=== PATIENT | female | born 1995 | race Caucasian/White ===

== ENCOUNTER 2018-03-25 11:54 | Emergency (ER) | payer MEDICAID ==
[~2018-03-25] VITALS: Ht 152.4 cm; Wt 63.0 kg
[~2018-03-25 11:54] MED LIST: ALBU8HFA IH; DIPH-423 PO; IBUP-1984 PO; NO HOME MEDS; ONDA4TAB6 PO; POTA20TA19 PO; PRED20TA PO; ZOF4T PO; [UNRECOGNIZED DRUG - CODE] PO
[2018-03-25 13:07] LABS: URINE HCG POSITIVE (NEG)
[2018-03-25 13:13] LABS: CLARITY,URINE SLIGHTLY CLOUDY (Clear); COLOR,URINE YELLOW (Yellow); GLUCOSE, URINE NEGATIVE (Neg); KETONES,URINE TRACE mg/dl (Neg); LEUKOCYTE ESTERASE ,URINE NEGATIVE (Neg); NITRITES, URINE NEGATIVE (Neg); OCCULT BLOOD,URINE MODERATE (Neg); PROTEIN,URINE NEGATIVE (Neg); UROBILINOGEN,URINE 0.2 E.U/dL (0.2-1.0)
[2018-03-25 13:15] LABS: UA COLLECTION TYPE CLN CATCH MIDSTREAM
[2018-03-25 13:25] LABS: BACTERIA,URINE 1+ /HPF (Neg); RBC,URINE NONE SEEN /HPF (0-2); SQUAMOUS EPITHELIAL CELL,UR MANY /LPF (FEW); WBC,URINE 0-4 /HPF (0-4)
[2018-03-25 14:27] VITALS: BP 121/78
[2018-03-25 14:40] LABS: BASOPHILS % (AUTO) 0.3 % (0-1); EOSINOPHILS # (AUTO) 0.2 X10'3 (0-0.9); EOSINOPHILS % (AUTO) 2.2 % (0-6); HEMATOCRIT 39.2 % (35.0-45.0); HEMOGLOBIN 13.6 g/dl (12.0-16.0); LYMPHOCYTES # (AUTO) 1.4 X10'3 (1.1-4.8); LYMPHOCYTES % (AUTO) 16.3 % (21-51); MEAN CORPUSCULAR HEMOGLOBIN 33.2 PG (27.0-31.0); MEAN CORPUSCULAR HGB CONC 34.8 % (33.0-36.5); MEAN CORPUSCULAR VOLUME 95.5 FL (78-98); MEAN PLATELET VOLUME 7.5 FL (7.4-10.4); MONOCYTES # (AUTO) 0.3 X10'3 (0-0.9); MONOCYTES % (AUTO) 3.5 % (2-12); NEUTROPHILS # (AUTO) 6.5 X10'3 (1.8-7.7); NEUTROPHILS % (AUTO) 77.7 % (42-75); PLATELET COUNT 385 X10'3 (140-440); RED BLOOD COUNT 4.11 X10'6 (4.20-5.60); RED CELL DISTRIBUTION WIDTH 12.6 % (11.5-14.5); WHITE BLOOD COUNT 8.4 X10'3 (4.5-11.0)
[2018-03-25 14:50] LABS: ALANINE AMINOTRANSFERASE 32 U/L (12-78); ALBUMIN 3.9 G/DL (3.4-5.0); ALKALINE PHOSPHATASE 60 IU/L (46-116); ANION GAP 11 (8-16); ASPARTATE AMINO TRANSFERASE 21 U/L (10-37); BILIRUBIN,TOTAL 0.3 MG/DL (0.1-1.0); BLOOD UREA NITROGEN 8 MG/DL (7-18); BUN/CREATININE RATIO 12.7 (6.6-38.0); CALCIUM 9.1 MG/DL (8.5-10.1); CHLORIDE 103 MMOL/L (99-107); CREATININE 0.63 MG/DL (0.40-0.90); POTASSIUM 3.7 MMOL/L (3.5-5.1); SODIUM 138 MMOL/L (135-145); TOTAL CARBON DIOXIDE 24.3 MMOL/L (24-32); eGFR > 90 ML/MIN
[2018-03-25 15:13] LABS: LIPASE 92 U/L (73-393)
[2018-03-25 15:21] LABS: BETA HCG,QUANTITATIVE 9796 mIU/ml; GLUCOSE 89 MG/DL (70-104)
== END 2018-03-25 15:42 | disposition home or self-care (01) ==
LOC: ER 11:55
DX: O26.891 Other specified pregnancy related conditions, first trimester (principal); R10.32 Left lower quadrant pain; J45.909 Unspecified asthma, uncomplicated; Z88.8 Allergy status to other drugs, medicaments and biological substances; Z79.899 Other long term (current) drug therapy; Z3A.01 Less than 8 weeks gestation of pregnancy
CPT/HCPCS: 36415; 76801; 80053; 81001; 81025; 83690; 84702; 85025; 86900; 86901; 99285

== ENCOUNTER 2018-08-23 16:13 | Emergency (ER) | payer MEDICAID, OTHER ==
[~2018-08-23] VITALS: Ht 152.4 cm; Wt 62.5 kg
[2018-08-23 16:18] VITALS: BP 128/80
[2018-08-23] MEDS ORDERED: ipratropium/albuterol 3ml nebule NEB ONE (16:35)
[2018-08-23] MEDS ORDERED: METH4TAB81 PO (16:47)
[2018-08-23] MEDS ORDERED: GUAI473S11 PO (16:47)
[2018-08-23] MEDS ORDERED: ALBU8.5H8 IH (16:47)
== END 2018-08-23 17:46 | disposition home or self-care (01) ==
LOC: ER 16:13
DX: R05 Cough (principal); J45.909 Unspecified asthma, uncomplicated; Z88.8 Allergy status to other drugs, medicaments and biological substances; Z79.899 Other long term (current) drug therapy
CPT/HCPCS: 99283

== ENCOUNTER 2019-10-04 08:17 | Emergency (ER) | payer MEDICAID ==
[~2019-10-04] VITALS: Ht 152.4 cm; Wt 63.6 kg
[~2019-10-04 08:17] MED LIST changes: +ALBU8.5H8 IH; +METH4TAB81 PO
[2019-10-04 08:21] VITALS: BP 135/97
[2019-10-04] MEDS ORDERED: CIPR7.5D LEFT EAR (08:42)
== END 2019-10-04 09:01 | disposition home or self-care (01) ==
LOC: ER 08:17
DX: H60.92 Unspecified otitis externa, left ear (principal); J06.9 Acute upper respiratory infection, unspecified; J45.909 Unspecified asthma, uncomplicated; F17.210 Nicotine dependence, cigarettes, uncomplicated; F10.99 Alcohol use, unspecified with unspecified alcohol-induced disorder; Z86.69 Personal history of other diseases of the nervous system and sense organs; Z88.8 Allergy status to other drugs, medicaments and biological substances; Z79.899 Other long term (current) drug therapy; Y90.9 Presence of alcohol in blood, level not specified
CPT/HCPCS: 99283; 99406

== ENCOUNTER 2020-09-06 11:44 | Emergency (ER) | payer MEDICAID, OTHER ==
[~2020-09-06] VITALS: Ht 152.4 cm; Wt 59.0 kg
[~2020-09-06 11:44] MED LIST changes: +CIPR7.5D LEFT EAR
[2020-09-06 11:52] VITALS: BP 121/72
--- NOTE | 2020-09-06 12:05 | NUR ---
[facility] for [facility], they were all out to lunch
[2020-09-06 16:07] LABS: CLARITY,URINE SLIGHTLY CLOUDY (Clear); COLOR,URINE YELLOW (Yellow); GLUCOSE, URINE NEGATIVE (Neg); KETONES,URINE TRACE mg/dl (Neg); LEUKOCYTE ESTERASE ,URINE NEGATIVE (Neg); NITRITES, URINE NEGATIVE (Neg); OCCULT BLOOD,URINE NEGATIVE (Neg); PH,URINE 6.5 (4.8-8.0); PROTEIN,URINE NEGATIVE (Neg); UROBILINOGEN,URINE 0.2 E.U/dL (0.2-1.0)
[2020-09-06 16:09] LABS: BASOPHILS % (AUTO) 0.6 % (0-1); EOSINOPHILS # (AUTO) 0.3 X10'3 (0-0.9); EOSINOPHILS % (AUTO) 5.2 % (0-6); HEMATOCRIT 40.7 % (35.0-45.0); HEMOGLOBIN 13.9 g/dl (12.0-16.0); LYMPHOCYTES # (AUTO) 1.2 X10'3 (1.1-4.8); LYMPHOCYTES % (AUTO) 17.4 % (21-51); MEAN CORPUSCULAR HEMOGLOBIN 32.2 PG (27.0-31.0); MEAN CORPUSCULAR HGB CONC 34.3 g/dL (33.0-36.5); MEAN CORPUSCULAR VOLUME 94.1 FL (78-98); MEAN PLATELET VOLUME 7.3 FL (7.4-10.4); MONOCYTES # (AUTO) 0.5 X10'3 (0-0.9); MONOCYTES % (AUTO) 7.1 % (2-12); NEUTROPHILS # (AUTO) 4.6 X10'3 (1.8-7.7); NEUTROPHILS % (AUTO) 69.7 % (42-75); PLATELET COUNT 413 X10'3 (140-440); RED BLOOD COUNT 4.33 X10'6 (4.20-5.60); RED CELL DISTRIBUTION WIDTH 12.3 % (11.5-14.5); WHITE BLOOD COUNT 6.6 X10'3 (4.5-11.0)
[2020-09-06 16:10] LABS: UA COLLECTION TYPE VOIDED
[2020-09-06 16:11] LABS: URINE HCG NEGATIVE (NEG)
[2020-09-06 16:17] LABS: BACTERIA,URINE 1+ /HPF (Neg); RBC,URINE 0-2 /HPF (0-2); SQUAMOUS EPITHELIAL CELL,UR FEW /LPF (FEW); URINE AMPHETAMINE SCREEN NEGATIVE (Neg); URINE BARBITUATE SCREEN NEGATIVE (Neg); URINE BENZODIAZEPINES SCREEN NEGATIVE (Neg); URINE CANNABINOID SCREEN NEGATIVE (Neg); URINE COCAINE SCREEN NEGATIVE (Neg); URINE METHADONE SCREEN NEGATIVE (Neg); URINE OPIATE SCREEN NEGATIVE (Neg); URINE PHENCYCLIDINE SCREEN NEGATIVE (Neg); WBC,URINE 0-4 /HPF (0-4)
[2020-09-06 16:18] LABS: ALANINE AMINOTRANSFERASE 35 U/L (12-78); ALBUMIN 4.1 G/DL (3.4-5.0); ALKALINE PHOSPHATASE 75 IU/L (46-116); ANION GAP 11 (8-16); ASPARTATE AMINO TRANSFERASE 22 U/L (10-37); BILIRUBIN,TOTAL 0.2 MG/DL (0.1-1.0); BLOOD UREA NITROGEN 8 MG/DL (7-18); BUN/CREATININE RATIO 14.5 (6.6-38.0); CALCIUM 9.2 MG/DL (8.5-10.1); CHLORIDE 103 MMOL/L (99-107); CREATININE 0.55 MG/DL (0.40-0.90); SODIUM 140 MMOL/L (135-145); TOTAL CARBON DIOXIDE 26.1 MMOL/L (24-32); TOTAL PROTEIN 8.2 G/DL (6.4-8.2); eGFR > 90 ML/MIN
[2020-09-06 16:19] LABS: GLUCOSE 87 MG/DL (70-104)
--- NOTE | 2020-09-06 17:19 | NUR ---
[facility] was called and a message was left for geri
--- NOTE | 2020-09-06 17:46 | NUR ---
sart exam performed, pt was offered shower but refused, pt ws also offered sti prophylaxis but refused them. pt did state that she will follow up with [facility] for further evaluation and or come back to the ER if she has concerns of infection. pt was accompained by [facility] advocate and by sister.
== END 2020-09-06 18:56 | disposition home or self-care (01) ==
LOC: ER 11:44 → EEVIPCON 11:44 → ER 18:56
DX: Z04.41 Encounter for examination and observation following alleged adult rape (principal); R51.9 Headache, unspecified; R11.10 Vomiting, unspecified; J45.909 Unspecified asthma, uncomplicated; F17.200 Nicotine dependence, unspecified, uncomplicated; Z98.890 Other specified postprocedural states; Z72.89 Other problems related to lifestyle; Z88.6 Allergy status to analgesic agent; Z88.8 Allergy status to other drugs, medicaments and biological substances; Z79.2 Long term (current) use of antibiotics; Z79.899 Other long term (current) drug therapy
CPT/HCPCS: 36415; 80053; 80305; 81001; 81025; 85025; 87491; 99283; 99284

== ENCOUNTER 2021-12-11 15:39 | Emergency (ER) | payer MEDICAID, OTHER ==
[~2021-12-11] VITALS: Ht 152.4 cm; Wt 67.3 kg
[~2021-12-11 15:39] MED LIST changes: +ALBU8.5H17 IH; -ALBU8.5H8 IH; +POTA-207 PO; -POTA20TA19 PO
[2021-12-11] MEDS ORDERED: ALBU6.7H9 INH (18:01)
[2021-12-11] MEDS ORDERED: LORA10TA65 PO (18:01)
[2021-12-11 18:12] VITALS: BP 129/99
== END 2021-12-11 18:15 | disposition home or self-care (01) ==
LOC: ER 15:40
DX: J45.909 Unspecified asthma, uncomplicated (principal); R05.9 Cough, unspecified; Z76.0 Encounter for issue of repeat prescription; Z72.89 Other problems related to lifestyle; Z98.890 Other specified postprocedural states; Z88.8 Allergy status to other drugs, medicaments and biological substances; Z88.6 Allergy status to analgesic agent; Z79.2 Long term (current) use of antibiotics; Z79.899 Other long term (current) drug therapy
CPT/HCPCS: 99282

== ENCOUNTER 2022-04-27 14:11 | Emergency (ER) | payer MEDICAID ==
[~2022-04-27] VITALS: Ht 152.4 cm; Wt 65.9 kg
[~2022-04-27 14:11] MED LIST changes: +ALBU6.7H9 INH; +LORA10TA65 PO
[2022-04-27 14:34] VITALS: BP 108/65
[2022-04-27] MEDS: terbinafine 250mg tablet PO ONE ×2 (19:04→19:28)
[2022-04-27] MEDS ORDERED: TERB250T89 PO (19:06)
[2022-04-27 19:18] LABS: ALANINE AMINOTRANSFERASE 26 U/L (12-78); ALBUMIN 3.6 G/DL (3.4-5.0); ALBUMIN/GLOBULIN RATIO 0.9 (1.1-1.5); ALKALINE PHOSPHATASE 73 IU/L (46-116); ANION GAP 8 (8-16); ASPARTATE AMINO TRANSFERASE 15 U/L (10-37); BILIRUBIN,TOTAL 0.3 MG/DL (0.1-1.0); BLOOD UREA NITROGEN 10 MG/DL (7-18); BUN/CREATININE RATIO 17.9 (6.6-38.0); CHLORIDE 104 MMOL/L (99-107); CREATININE 0.56 MG/DL (0.40-0.90); GLUCOSE 89 MG/DL (70-104); POTASSIUM 4.1 MMOL/L (3.5-5.1); SODIUM 138 MMOL/L (135-145); TOTAL CARBON DIOXIDE 26.3 MMOL/L (24-32); TOTAL PROTEIN 7.5 G/DL (6.4-8.2); eGFR > 90 ML/MIN
== END 2022-04-27 19:35 | disposition home or self-care (01) ==
LOC: ER 14:12
DX: B35.0 Tinea barbae and tinea capitis (principal); J45.909 Unspecified asthma, uncomplicated; L40.9 Psoriasis, unspecified; Z88.6 Allergy status to analgesic agent; Z79.899 Other long term (current) drug therapy
CPT/HCPCS: 36415; 80053; 99283

== ENCOUNTER 2022-11-19 15:22 | Emergency (ER) | payer MEDICAID ==
[~2022-11-19] VITALS: Ht 152.4 cm; Wt 62.7 kg
[~2022-11-19 15:22] MED LIST changes: +ALBU6.7H14 INH; -ALBU6.7H9 INH
[2022-11-19 15:27] VITALS: BP 111/75
[2022-11-19 18:58] LABS: URINE HCG POSITIVE (NEG)
[2022-11-19 19:01] LABS: CLARITY,URINE SLIGHTLY CLOUDY (Clear); COLOR,URINE YELLOW (Yellow); GLUCOSE, URINE NEGATIVE (Neg); KETONES,URINE 15 mg/dl (Neg); LEUKOCYTE ESTERASE ,URINE NEGATIVE (Neg); NITRITES, URINE NEGATIVE (Neg); OCCULT BLOOD,URINE LARGE (Neg); PH,URINE 6.5 (4.8-8.0); PROTEIN,URINE NEGATIVE (Neg); UROBILINOGEN,URINE 0.2 E.U/dL (0.2-1.0)
[2022-11-19 19:06] LABS: BASOPHILS # (AUTO) 0.1 X10'3 (0-0.2); BASOPHILS % (AUTO) 0.5 % (0-1); EOSINOPHILS # (AUTO) 0.2 X10'3 (0-0.9); EOSINOPHILS % (AUTO) 2.4 % (0-6); HEMATOCRIT 37.9 % (35.0-45.0); HEMOGLOBIN 12.9 g/dl (12.0-16.0); LYMPHOCYTES % (AUTO) 19.2 % (21-51); MEAN CORPUSCULAR HEMOGLOBIN 31.9 PG (27.0-31.0); MEAN CORPUSCULAR HGB CONC 34.1 g/dL (33.0-36.5); MEAN CORPUSCULAR VOLUME 93.6 FL (78-98); MEAN PLATELET VOLUME 7.2 FL (7.4-10.4); MONOCYTES # (AUTO) 0.6 X10'3 (0-0.9); MONOCYTES % (AUTO) 5.4 % (2-12); NEUTROPHILS # (AUTO) 7.3 X10'3 (1.8-7.7); NEUTROPHILS % (AUTO) 72.5 % (42-75); PLATELET COUNT 413 X10'3 (140-440); RED BLOOD COUNT 4.05 X10'6 (4.20-5.60); RED CELL DISTRIBUTION WIDTH 12.7 % (11.5-14.5); WHITE BLOOD COUNT 10.2 X10'3 (4.5-11.0)
[2022-11-19 19:10] LABS: UA COLLECTION TYPE CLN CATCH MIDSTREAM
[2022-11-19 19:12] LABS: SQUAMOUS EPITHELIAL CELL,UR MANY /LPF (FEW)
[2022-11-19 19:13] LABS: BACTERIA,URINE 2+ /HPF (Neg)
[2022-11-19 19:14] LABS: WBC,URINE 0-4 /HPF (0-4)
--- NOTE | 2022-11-19 22:17 | NUR ---
THIS NURSE CHAPERONED MD WITH EXAM
== END 2022-11-19 22:20 | disposition home or self-care (01) ==
LOC: ER 15:22
DX: O20.0 Threatened abortion (principal); F17.200 Nicotine dependence, unspecified, uncomplicated; J45.909 Unspecified asthma, uncomplicated; Z88.6 Allergy status to analgesic agent; Z88.8 Allergy status to other drugs, medicaments and biological substances; Z79.899 Other long term (current) drug therapy; Z79.1 Long term (current) use of non-steroidal anti-inflammatories (NSAID); Z79.2 Long term (current) use of antibiotics; Z79.82 Long term (current) use of aspirin
CPT/HCPCS: 36415; 76801; 76817; 81001; 81025; 84702; 85025; 86885; 86900; 86901; 99284

== ENCOUNTER 2023-02-05 23:28 | Emergency (ER) | payer MEDICAID ==
[~2023-02-05] VITALS: Ht 152.4 cm; Wt 59.5 kg
[2023-02-05 23:40] VITALS: BP 119/78
[2023-02-06] MEDS ORDERED: SULF1TAB49 PO (01:56)
[2023-02-06] MEDS ORDERED: CEPH-585 PO (01:56)
== END 2023-02-06 02:02 | disposition home or self-care (01) ==
LOC: ER 23:28
DX: L02.811 Cutaneous abscess of head [any part, except face] (principal)
CPT/HCPCS: 99283

== ENCOUNTER 2025-06-01 01:17 | Emergency (ER) | payer MEDICAID ==
[~2025-06-01] VITALS: Ht 152.4 cm; Wt 59.0 kg
--- NOTE | 2025-06-01 01:41 | Physician Documentation ---
History of Present Illness ~ Chief Complaint: Shoulder pain Stated Complaint: LEFT SHOULDER PAIN Time Seen by MD: 01:38 Primary Medical Doctor: [facility] Patient presents to the emergency room with pain to her left shoulder. She sta lluvia it began gradually yesterday when she woke up. She has had nothing for the pain. She is just concerned that has wrong. She is declining any pain medicine Tetanus within 5 years?: No (UNKNOWN) Medication Reconciliation Allergies: Coded Allergies: acetaminophen (Verified Allergy, Unknown, 11/19/22) diphenhydramine (Verified Allergy, Unknown, 11/19/22) Scheduled Albuterol Sulfate (Proventil Hfa), 2 PUFFS INH Q6H Ciprofloxacin HCl/Dexameth (Ciprodex Otic Suspension), 2 DROP LEFT EAR Q4H Ibuprofen* (Motrin*), 1-2 TAB PO Q8H Ibuprofen* (Motrin*), 600 MG PO Q6H Loratadine (Claritin), 1 TAB PO DAILY Methylprednisolone (Medrol Dosepak), 4 MG PO DAILY Nitrofurantoin Macrocrystal (MACRODANTIN capsule), 50 MG PO QID Ondansetron ODT* (Zofran ODT*), 8 MG PO Q6H Potassium Chloride* (K-Dur*), 1 TABLET PO BID Prednisone* (Prednisone*), 20 MG PO DAILY albuterol inhaler (Pro-Air Inhaler), 2 PUFFS IH Q6H Scheduled PRN Albuterol Sulfate (Proair Hfa), 2 PUFFS IH Q4H PRN for SOB or wheezing Diphenhydramine Hcl (Benadryl), 25 MG PO TID PRN for itching Ondansetron Hcl (Zofran), 1 TABLET PO Q6H PRN for nausea/vomiting Ondansetron Hcl (Zofran), 1 TABLET PO Q6H PRN for nausea/vomiting Miscellaneous Medications Home Med List (No Home Medications), (Reported) Past Medical History Past Medical History: Asthma, *RENAL/*, Psoriasis Past Surgical History: noncontributory Other Past Surgical History: eye surgery Alcohol Use: Heavy Drug Use: none Lives with: Family Lives In: Home Occupation: employed, student Review of Systems ROS All review of systems negative except as per HPI Physical Exam Vital Signs: Temperature: 98.4, Heart Rate: 90, Respiratory Rate: 16, BP: 137/83, Pulse Oximetry: 97, Weight: 59.000 Oxygen Flow Rate: 0 Physical Exam General: Patient is awake, alert, oriented x4 in no acute distress Head: Normocephalic and atraumatic. Eyes: Conjunctival normal. EOMI. PERRL. ENT: Mucous membranes moist. Neck: Supple, trachea is midline. Chest: Clear to auscultation bilaterally without rales, rhonchi, or wheezes. There is no accessory muscle use or retractions. Tenderness to palpation to left AC joint Cardiac: RRR without murmurs, gallops, or rubs. Progress Results/Orders Results/Orders Orders - JULIEN MORE MD Shoulder, Complete (Min 2 Vws) (06/01/25 02:05) Completed Orders - JULIEN MORE MD Shoulder, Complete (Min 2 Vws) (06/01/25 02:05) Hcg, Ur Ql (06/01/25 01:37) Vital Signs 06/01/25 01:19 Temp 98.4 Pulse 90 Resp 16 B/P (MAP) 137/83 Pulse Ox 97 O2 Flow Rate 0 Laboratory Tests Test 06/01/25 01:39 Urine HCG, Qualitative Negative EKG/XRAY/CT/US/VASC/MRI Bone/Soft Tissue X-Ray (Ext.) : Additional Comment Shoulder series interpreted by myself is negative for fractures, dislocations or foreign bodies Medical Decision Making Findings Patient presents to the emergency room with pain to her left shoulder of undetermined significance. Differentials include but are not limited to fractures, dislocations, soft tissue injury, referred pain, ACS. Given patient's tenderness to palpation over AC joint and increase with movement it feel patient is suffering from soft tissue injury. Rice therapy discussed. X- ray reassuring Departure Disposition: HOME / SELF CARE / HOMELESS Impression: Primary Impression: Shoulder pain Condition: Stable Discharge Instructions: Shoulder Pain Additional Instructions: Both ibuprofen and Tylenol can be taken together for pain. Ice may be of benefit. You may need referral to physical therapy or advanced imaging therefore follow up with your doctor for re-evaluation Referrals: NO PRIMARY CARE PROVIDER (PCP) Education Educated: Patient Educated regarding: need for follow up Signature Scribe Signature: No scribe Attestation: The note accurately reflects work and decisions made by me.Julien More MD 06/01/25 01:49 JULIEN MORE MD Jun 01, 2025 01:41
[2025-06-01 01:55] LABS: URINE HCG NEGATIVE (NEG)
--- NOTE | 2025-06-01 02:22 | RADIOLOGY REPORT ---
CLINICAL INDICATION: Shoulder Pain,left TECHNIQUE: 4 views DI SHOULDER, COMPLETE (MIN 2 VWS) Comparison: None FINDINGS: No acute fracture or dislocation. No significant degenerative change. Unremarkable soft tissues and imaged chest contents. IMPRESSION: 1. No acute finding of the left shoulder.
[2025-06-01 02:53] VITALS: BP 132/88; PULSE 85; RESP 18; TEMP 98.4; O2SAT 96
== END 2025-06-01 02:55 | disposition home or self-care (01) ==
LOC: ER 01:17
DX: M25.512 Pain in left shoulder (principal); J45.909 Unspecified asthma, uncomplicated; Z88.8 Allergy status to other drugs, medicaments and biological substances; Z79.899 Other long term (current) drug therapy
CPT/HCPCS: 73030; 81025; 99284